=== PATIENT | male | born 1985 | race Hispanic/Latino ===

== ENCOUNTER → 2023-04-19 | Emergency (ER) | payer SELFPAY ==
[~2023-04-19] MED LIST: dexAMETHasone 10 MG/ML VIAL ONE
--- NOTE | 2023-04-19 10:13 | EDPHYS ---
Physician Documentation [facility] Name: Jose Lobo Age: 38 yrs Sex: Male : 1985 Arrival Date: 04/19/2023 Time: 09:57 Bed IW1 Private MD: ED Physician Olvin Burger HPI: 04/18 10:14 This 38 yrs old Male presents to ER via Ambulatory with complaints of Sore ec2 Throat - ear pressure. 10:14 Patient arrives today for evaluation of sore throat and bilateral ear pain. Patient ec2 been having symptoms for approximately a week. Patient reports some fevers and chills as well as cough and sinus pressure. Reports no issues with p.o. intake, no vomiting, no diarrhea. Reports he does vape. Patient otherwise does have allergy to penicillin.. Historical: - Allergies: 10:07 Penicillins; kd3 - Immunization history:: Adult Immunizations up to date. - Social history:: Smoking status: Reported history of juuling and/or vaping. ROS: 10:14 Constitutional: as per hpi ec2 Exam: 10:14 Constitutional: GEN: NAD Head: atraumatic Eyes: EOMI Ears: External ears are normal. ec2 Right ear with fluid noted behind the TM, erythema noted as well. Mouth: Posterior pharyngeal erythema noted, no exudates appreciated. CV: regular rate LUNGS: no respiratory distress, no wheezes, rales, rhonchi ABD: non-distended SKIN: no evidence of rashes MSK: no evidence of trauma NEURO: moves all extremities equally Vital Signs: 10:04 BP 122 / 76; Pulse 89; Resp 16; Temp 99.4(O); Pulse Ox 97% ; Weight 117.93 kg; Height 5 kd3 ft. 11 in. ; Pain 8/10; 10:04 Body Mass Index 36.26 (117.93 kg, 180.34 cm) kd3 10:04 Pain Scale: Adult kd3 MDM: 10:05 Patient medically screened. ec2 10:14 Data reviewed: vital signs. ED course: Patient arrives today for sore throat and ear ec2 pain. Examination remarkable for ear findings as noted above. Presentation consistent with otitis media. Will defer any lab work given lack of significant systemic symptoms. Will start the patient on clindamycin, give the patient dose of Decadron. Patient discharged home. Return precautions given.. Administered Medications: 10:21 Drug: Dexamethasone IM 10 mg IM once Route: IM; Site: right deltoid; kd3 10:21 Follow up: Response: No adverse reaction kd3 10:21 Drug: Clindamycin PO 300 mg PO once Route: PO; kd3 10:21 Follow up: Response: No adverse reaction kd3 Disposition Summary: 04/19/23 10:12 Discharge Ordered Notes: Location: Home ec2 Condition: Stable ec2 Diagnosis - Acute serous otitis media, right ear ec2 Followup: ec2 - With: Private Physician - When: - Reason: Recheck today's complaints Discharge Instructions: - Discharge Summary Sheet ec2 - Otitis Media, Adult ec2 Forms: - Work release form ec2 - Medication Reconciliation Form ec2 - Thank You Letter ec2 - Antibiotic Education ec2 - Prescription Opioid Use ec2 - Patient Portal Instructions ec2 - Leadership Thank You Letter ec2 Prescriptions: - Clindamycin HCl 300 mg Oral capsule - take 1 capsule ORAL route every 8 hours for 7 days; 21 capsule; Refills: 0, ec2 Product Selection Permitted Signatures: Ly Cedeno RN RN kd3 Olvin Burger MD MD ec2 Corrections: (The following items were deleted from the chart) 10:09 10:04 Social history: Smoking status: unknown kd3 kd3
--- NOTE | 2023-04-19 10:13 | ER ---
Nurse's Notes [facility] Name: Jose Lobo Age: 38 yrs Sex: Male : 1985 Arrival Date: 04/19/2023 Time: 09:57 Bed IW1 Private MD: Diagnosis: Acute serous otitis media, right ear Presentation: 04/18 10:04 Chief complaint: Patient states: I have been sick for the past week. I have been taking kd3 over the counter medications. I have ear pressure, fluid feeling in my ear, cough, chest aches, sore throat and i had a fever that showed up on . I took some Tylenol today. Also i have a pain in my back. Ebola Screen: No symptoms or risks identified at this time. Initial Sepsis Screen: Does the patient meet any 2 criteria? No. Patient's initial sepsis screen is negative. Does the patient have a suspected source of infection? No. Patient's initial sepsis screen is negative. Risk Assessment: Do you want to hurt yourself or someone else? Patient reports no desire to harm self or others. Onset of symptoms was April 19, 2023. 10:04 Method Of Arrival: Ambulatory kd3 10:12 Acuity: MANNIE 4 kd3 10:12 Coronavirus screen: Vaccine status: Patient reports receiving the 2nd dose of the covid kd3 vaccine. Triage Assessment: 10:07 General: Appears in no apparent distress. Behavior is calm, cooperative. Pain: kd3 Complains of pain in right ear, left ear, back, uvula, left aspect of posterior pharynx and right aspect of posterior pharynx. EENT: Ear canal fluid in the right ear, redness to the left ear. . Historical: - Allergies: 10:07 Penicillins; kd3 - Immunization history:: Adult Immunizations up to date. - Social history:: Smoking status: Reported history of juuling and/or vaping. Screenin:11 [facility] ED Fall Risk Assessment (Adult) History of falling in the last 3 months, kd3 including since admission No falls in past 3 months (0 pts) Confusion or Disorientation No (0 pts) Intoxicated or Sedated No (0 pts) Impaired Gait No (0 pts) Mobility Assist Device Used No (0 pt) Altered Elimination No (0 pt) Score/Fall Risk Level 0 - 2 = Low Risk Oriented to surroundings. Abuse screen: Denies threats or abuse. Denies injuries from another. Nutritional screening: No deficits noted. Tuberculosis screening: No symptoms or risk factors identified. Assessment: 10:10 General: Provider evaluating patient in triage room . Neuro: Level of Consciousness is kd3 awake, alert, obeys commands, Oriented to person, place, time, situation. Cardiovascular: Patient's skin is warm and dry. Respiratory: Airway is patent Respiratory effort is even, unlabored, Breath sounds are clear bilaterally. 10:12 EENT: Throat is reddened. kd3 Vital Signs: 10:04 BP 122 / 76; Pulse 89; Resp 16; Temp 99.4(O); Pulse Ox 97% ; Weight 117.93 kg; Height 5 kd3 ft. 11 in. ; Pain 8/10; 10:04 Body Mass Index 36.26 (117.93 kg, 180.34 cm) kd3 10:04 Pain Scale: Adult kd3 ED Course: 09:59 Patient arrived in ED. ra3 10:01 Olvin Burger MD is Attending Physician. ec2 10:01 Magdy Quinonez PA is PHCP. cp 10:07 Arm band placed on right wrist. kd3 10:11 Patient has correct armband on for positive identification. Provided Education on: kd3 Medication/ Antibiotics. . 10:12 Triage completed. kd3 10:12 No provider procedures requiring assistance completed. Patient did not have IV access kd3 during this emergency room visit. 10:21 Ly Cedeno, RN is Primary Nurse. kd3 Administered Medications: 10:21 Drug: Dexamethasone IM 10 mg IM once Route: IM; Site: right deltoid; kd3 10:21 Follow up: Response: No adverse reaction kd3 10:21 Drug: Clindamycin PO 300 mg PO once Route: PO; kd3 10:21 Follow up: Response: No adverse reaction kd3 Medication: 10:11 VIS not applicable for this client. kd3 Outcome: 10:12 Discharge ordered by . ec2 10:21 Discharged to home ambulatory, kd3 10:21 Condition: stable 10:21 Discharge instructions given to patient, Instructed on discharge instructions, follow up and referral plans. medication usage, Demonstrated understanding of instructions, follow-up care, medications, Prescriptions given X 1, 10:21 Patient left the ED. kd3 Signatures: Magdy Quinonez PA PA cp Doucette, Kyli, RN RN kd3 Olvin Burger MD MD ec2 Ariana Eng ra3 Corrections: (The following items were deleted from the chart) 10:09 10:04 Social history: Smoking status: unknown kd3 kd3
[2023-04-19 10:58] VITALS: BP 122/76; TEMP 99.4; O2SAT 97
== END ==
LOC: ER 09:57
DX: H65.01 Acute serous otitis media, right ear (principal); Z88.0 Allergy status to penicillin
CPT/HCPCS: 96372; 99284; J1100